=== PATIENT | male | born 1990 | race Hispanic/Latino ===

== ENCOUNTER 2017-04-09 09:40 | Inpatient (IN) | payer MEDICAID, OTHER, SELFPAY ==
[~2017-04-09] VITALS: Ht 172.7 cm; Wt 94.8 kg
[2017-04-09] VITALS (21 sets, daily range): BP systolic 110–134; BP diastolic 52–79
[2017-04-09 11:24] LABS: BASOPHILS % (AUTO) 0.4 % (0.0-5.0); EOSINOPHILS % (AUTO) 0.4 % (0.0-8.0); LYMPHOCYTES % (AUTO) 14.6 % (21.0-51.0); MEAN CORPUSCULAR HEMOGLOBIN 29.4 pg (27.0-33.0); MEAN CORPUSCULAR VOLUME 86.7 fL (79-99); NEUTROPHILS % (AUTO) 79.6 % (40.0-77.0); PLATELET COUNT (AUTO) 271 K/uL (130-400); RED BLOOD CELL COUNT(AUTO) 5.19 MIL/uL (4.50-6.20); WHITE BLOOD COUNT (AUTO) 8.3 K/uL (4.8-10.8)
[2017-04-09 11:38] LABS: POTASSIUM 3.5 mmol/L (3.5-5.1)
[2017-04-09] MEDS ORDERED: BUPIVACAINE/EPI/PF 0.25% 30ML VIAL IJ ONE (13:32)
[2017-04-09] MEDS ORDERED: DURAMORPH PF1 MG/ML 10ML AMP IV ONE (13:33)
[2017-04-09] MEDS ORDERED: THROMBIN-JMI 20000 UNIT KIT TP ONE (13:33)
[2017-04-09] MEDS ORDERED: BACITRACIN 50,000 UNIT VIAL ONE (13:33)
[2017-04-09] MEDS ORDERED: LIDOCAINE PF 2% 5ML ABBOJECT ONE (13:35)
[2017-04-09] MEDS ORDERED: SUCCINYLCHOLINE 200MG/10ML SYR ONE (13:35)
[2017-04-09] MEDS ORDERED: GLYCOPYRROLATE 0.2 MG/ML 5 ML VIAL ONE (13:35)
[2017-04-09] MEDS ORDERED: ONDANSETRON HCL 4 MG/2 ML VIAL ONE (13:35)
[2017-04-09] MEDS ORDERED: DEXAMETHASONE SOD PHOSPHATE 10MG/ML 1ML VIAL ONE (13:35)
[2017-04-09] MEDS ORDERED: MIDAZOLAM HCL 1 MG/ML 2ML VIAL ONE (13:36)
[2017-04-09] MEDS ORDERED: FENTANYL CITRATE PF 50 MCG/1 ML 2ML VIAL ONE ×3 (13:36→14:37)
[2017-04-09] MEDS ORDERED: PROPOFOL 10 MG/ML 20ML VIAL IV ONE ×2 (13:36→16:23)
[2017-04-09] MEDS ORDERED: CEFAZOLIN SODIUM 1 GM VIAL ONE (14:08)
[2017-04-09] MEDS ORDERED: SODIUM CHLORIDE 0.9% 10 ML VIAL IVP PRN (16:30)
[2017-04-09] MEDS ORDERED: HYDROCODONE/ACETAMINOPHEN 5/325 MG TAB PO PRN (16:30)
[2017-04-09] MEDS ORDERED: CEFAZOLIN 2GM / 50 ML 50 ML IV SCH (16:30)
[2017-04-09] MEDS ORDERED: MORPHINE SULFATE 2 MG/ML 1ML SYG IVP PRN (16:30)
[2017-04-09] MEDS ORDERED: PROMETHAZINE HCL 25 MG/ML 1ML AMPULE IM PRN (16:30)
[2017-04-09] MEDS ORDERED: MEPERIDINE-PF 50 MG/ML SYG ONE (16:39)
[2017-04-09] MEDS: DEXAMETHASONE SOD PHOSPHATE 4 MG/ML 1ML VIAL IVP SCH ×2 (18:14→23:36)
[2017-04-09] MEDS: LACTATED RINGERS 1000ML 1,000 ML IV SCH (18:15)
[2017-04-09] MEDS ORDERED: CEFAZOLIN SODIUM 1 GM VIAL IVP ONE (20:00)
[2017-04-09] MEDS ORDERED: GABAPENTIN 300 MG CAPSULE PO SCH (21:00)
[2017-04-10 00:04] VITALS: BP 108/50
[2017-04-10 04:32] VITALS: BP 95/52
[2017-04-10] MEDS: DEXAMETHASONE SOD PHOSPHATE 4 MG/ML 1ML VIAL IVP SCH (06:13)
[2017-04-10] MEDS: LACTATED RINGERS 1000ML 1,000 ML IV SCH (06:13)
[2017-04-10 07:45] VITALS: BP 135/79
== END 2017-04-10 10:45 | disposition home or self-care (01) | DRG 30 ==
LOC: EDH 09:40 → EDHIP 13:44 → 4AH 17:45
PROVIDERS: ADMIT Neurological Surgery; ATTEND Neurological Surgery
PROC: BR131ZZ Fluoroscopy of Lumbar Disc(s) using Low Osmolar Contrast (ICD-10-PCS; 2017-04-09)
PROC: 0SB20ZZ Excision of Lumbar Vertebral Disc, Open Approach (ICD-10-PCS; principal; 2017-04-09 14:13)
PROC: 01NB0ZZ Release Lumbar Nerve, Open Approach (ICD-10-PCS; 2017-04-09 14:13)
PROC: 3E0R3BZ Introduction of Anesthetic Agent into Spinal Canal, Percutaneous Approach (ICD-10-PCS; 2017-04-09 14:13)
DX: G83.4 Cauda equina syndrome (principal); K00.7 Teething syndrome; M48.00 Spinal stenosis, site unspecified; M51.26 Other intervertebral disc displacement, lumbar region
CPT/HCPCS: 36415; 72020; 72148; 80048; 85025; A4218; A4344; J0330; J0690; J1100; J2001; J2175; J2250; J2274; J2405; J2704; J3010; J3490; J7120